=== PATIENT | male | born 1995 | race Caucasian/White ===

== ENCOUNTER 2016-07-03 21:05 | Emergency (ER) | payer BC ==
[2016-07-03] MEDS ORDERED: ONDANSETRON 4 MG/2 ML VIAL IVP ONE (21:22)
[2016-07-03] MEDS ORDERED: NS 1,000 ML IV ONE ×2 (21:22→21:35)
[2016-07-03 21:32] LABS: % IMMATURE GRANULYOCYTES 0.3 % (0.0-1.1); ABSOLUTE IMMATURE GRANULOCYTES 0.03 10^3/uL (0.00-0.10); ADD DIFF? NO; ADD MORPH? NO; ADD SCAN? NO; ATYPICAL LYMPHOCYTE FLAG 10 (0-99); FRAGMENT RBC FLAG 0 (0-99); HEMATOCRIT 50.9 % (40.0-51.0); HEMOGLOBIN 18.5 g/dL (13.7-17.5); LEFT SHIFT FLG 0 (0-99); LIPEMIA HEMOLYSIS FLAG 90 (0-99); MEAN CELL HEMOGLOBIN 30.6 pg (27.9-34.1); MEAN CELL HEMOGLOBIN CONCENTR. 36.3 g/dL (32.4-36.7); MEAN CELL VOLUME 84.1 fL (81.5-99.8); MEAN PLATELET VOLUME 9.7 fL (8.7-11.7); PLATELET CLUMPS FLAG 0 (0-99); PLATELET COUNT 232 10^3/uL (150-400); RED BLOOD CELL COUNT 6.05 10^6/uL (4.40-6.38); RED CELL DISTRIBUTION WIDTH 13.1 % (11.5-15.2)
--- NOTE | 2016-07-03 21:41 | EDPHY ---
HPI/HX/ROS/PE/MDM Narrative: CHIEF COMPLAINT: Vomiting, diarrhea HPI: The patient is a 21 y/o male arriving with his friend complaining of 6 hours of diarrhea, vomiting, and fatigue. He denies blood in his stool or emesis. No recent antibiotics or travel outside the [place]. He has not been around anyone with similar symptoms. He notes he ate a homemade hamburger tonight. He denies pain, fever. REVIEW OF SYSTEMS: Aside from elements discussed in the HPI, a comprehensive 10-point review of systems was reviewed and is negative. PMH: Denies SOCIAL HISTORY: Visited [facility] 2 months ago. Friend at bedside. PHYSICAL EXAM: General:Patient is alert, in no acute distress. ENT:Eyes are normal to inspection. ENT inspection normal. Neck: Normal inspection. Full range of motion. Respiratory:No respiratory distress. Breath sounds normal bilaterally. Cardiovascular: Regular rate and rhythm. Strong peripheral pulses. Normal cap refill. Abdomen:The abdomen is nontender to palpation. There are no peritoneal signs. There are normal bowel sounds. Back: Normal to inspection. No tenderness to palpation. Skin: Normal color. No rash. Warm and dry. Extremities: Normal appearance. Full range of motion. Neuro: Oriented x3. Normal motor function. Normal sensory function. ED Course: IV established. Labs drawn including CBC, CHEM. Flu swab ordered. 4mg IV Zofran and 1L IV NS administered. Flu swab negative. MDM: This patient presents with signs and symptoms of gastroenteritis. His abdomen is benign. He denies any complaint of abdominal pain. He is not febrile. There is a significant amount of rotavirus in this age school or currently in the community and we are seeing multiple cases of it today in the emergency department. As such, I think this is the most likely diagnosis. I offered the patient further observation in the emergency department and/or hospital but he declined and would like to go home. We discussed strict return precautions. I see no evidence of appendicitis, bowel obstruction, bowel perforation, severe sepsis, shock or renal failure. - Data Points Laboratory Results: Laboratory Results 07/03/16 21:24 07/03/16 21:24 07/03/16 07/03/16 21:24 21:15 WBC 10.40 H 10^3/uL (3.80-9.50) RBC 6.05 10^6/uL (4.40-6.38) Hgb 18.5 H g/dL (13.7-17.5) Hct 50.9 % (40.0-51.0) MCV 84.1 fL (81.5-99.8) MCH 30.6 pg (27.9-34.1) MCHC 36.3 g/dL (32.4-36.7) RDW 13.1 % (11.5-15.2) Plt Count 232 10^3/uL (150-400) MPV 9.7 fL (8.7-11.7) Neut % (Auto) 82.6 H % (39.3-74.2) Lymph % (Auto) 9.3 L % (15.0-45.0) Mineral % (Auto) 7.2 % (4.5-13.0) Eos % (Auto) 0.4 L % (0.6-7.6) Baso % (Auto) 0.2 L % (0.3-1.7) Nucleat RBC Rel Count 0.0 % (0.0-0.2) Absolute Neuts (auto) 8.59 H 10^3/uL (1.70-6.50) Absolute Lymphs (auto) 0.97 L 10^3/uL (1.00-3.00) Absolute Monos (auto) 0.75 10^3/uL (0.30-0.80) Absolute Eos (auto) 0.04 10^3/uL (0.03-0.40) Absolute Basos (auto) 0.02 10^3/uL (0.02-0.10) Absolute Nucleated RBC 0.00 10^3/uL (0-0.01) Immature Gran % 0.3 % (0.0-1.1) Immature Gran # 0.03 10^3/uL (0.00-0.10) Sodium 141 mEq/L (134-144) Potassium 4.0 mEq/L (3.5-5.2) Chloride 102 mEq/L (97-110) Carbon Dioxide 18 L mEq/l (22-31) Anion Gap 21 mEq/L (8-16) BUN 21 mg/dL (7-23) Creatinine 1.1 mg/dL (0.7-1.3) Estimated GFR > 60 Glucose 145 H mg/dL (70-100) Calcium 10.9 H mg/dL (8.5-10.4) Phosphorus 1.2 L mg/dL (2.5-4.5) Influenza Typ A,B (DFA) NEGATIVE FOR FLU (NEGATIVE) Medications Given: Discontinued Medications Sodium Chloride (Ns) 1,000 mls @ 0 mls/hr IV ONCE ONE PRN Reason: Wide Open Stop: 07/03/16 21:23 Last Admin: 07/03/16 21:27 Dose: 1,000 mls Sodium Chloride (Ns) 1,000 mls @ 0 mls/hr IV ONCE ONE PRN Reason: Wide Open Stop: 07/03/16 21:36 Last Admin: 07/03/16 21:55 Dose: Not Given Ondansetron HCl (Zofran) 4 mg IVP EDNOW ONE Stop: 07/03/16 21:23 Last Admin: 07/03/16 21:28 Dose: 4 mg General Time Seen by Provider: 07/03/16 21:18 Initial Vital Signs: Initial Vital Signs Heart Rate 109 H 07/03/16 21:10 Respiratory Rate 24 H 07/03/16 21:10 Blood Pressure 135/74 H 07/03/16 21:10 O2 Sat (%) 97 07/03/16 21:10 O2 Delivery Mode Room Air Allergies/Adverse Reactions: No Known Allergies Allergy (Unverified 07/03/16 21:10) Home Medications: Medication Instructions Recorded Ondansetron Odt [Zofran Odt] 4 mg PO Q4PRN PRN #8 tab 07/03/16 Departure - Departure Disposition: Home, Routine, Self-Care Clinical Impression: Gastroenteritis Condition: Good Instructions: Gastroenteritis (ED) Additional Instructions: 1. Take Zofran as prescribed when needed for nausea and vomiting. 2. Use Imodium, available [id number], as directed on the packaging when needed for diarrhea. 3. Follow up with your primary care provider for symptoms not improved over the next week. 4. Practice good hand hygiene while you are symptomatic as you are likely infectious. 5. Return to the ED for worsening of condition. Referrals: OUT OF STATE,. [Primary Care Provider] - As per Instructions [facility] [Outside] - As per Instructions Prescriptions: Ondansetron Odt [Zofran Odt] 4 mg PO Q4PRN PRN #8 tab PRN Reason: Nausea Report Scribed for: Abhishek Medina Report Scribed by: Patricia Kirby Date of Report: 07/03/16 Time of Report: 21:41 Physician Review and Approval Statement: Portions of this note were transcribed by an ED scribe. I personally performed the history, physical exam, and medical decision making; and confirm the accuracy of the information in the transcribed note.
[2016-07-03 21:43] LABS: ANION GAP 21 mEq/L (8-16); CALCIUM 10.9 mg/dL (8.5-10.4); CARBON DIOXIDE 18 mEq/l (22-31); CHLORIDE 102 mEq/L (97-110); CREATININE 1.1 mg/dL (0.7-1.3); GLOMERULAR FILTRATION RATE > 60; GLUCOSE 145 mg/dL (70-100); SODIUM 141 mEq/L (134-144)
[2016-07-03] MEDS ORDERED: ONDANSETRON 4MG PREPACK#2 BTL TAKEHOME ONE (22:41)
[2016-07-03 22:57] VITALS: BP 126/76; PULSE 90; RESP 18; TEMP 97.9; O2SAT 96
== END 2016-07-03 22:57 | disposition home or self-care (01) ==
DX: K52.9 Noninfective gastroenteritis and colitis, unspecified (principal)
CPT/HCPCS: 96374; J2405